=== PATIENT | female | born 1940 | race Caucasian/White ===

== ENCOUNTER 2024-09-23 18:57 | Emergency (ER) | payer OTHER, BC ==
[2024-09-23 19:37] VITALS: PULSE 73; RESP 20
[2024-09-23 19:54] VITALS: BP 153/83; BMI 25.3
[2024-09-23] MEDS: LIDOCAINE 4% PATCH TP ONE (20:10)
[2024-09-23] MEDS: IBUPROFEN 400 MG TABLET (FP) PO ONE (20:10)
[2024-09-23] MEDS ORDERED: LIDOCAINE PATCH REMOVAL MC SCH (22:00)
== END 2024-09-23 22:51 | disposition home or self-care (01) ==
LOC: JER 18:57
DX: S20.212A Contusion of left front wall of thorax, initial encounter (principal); W22.8XXA Striking against or struck by other objects, initial encounter; Y92.009 Unspecified place in unspecified non-institutional (private) residence as the place of occurrence of the external cause
CPT/HCPCS: 71101-TC-LT-FY; 99283-25